=== PATIENT | female | born 1970 | race American Indian/Alaskan Native ===

== ENCOUNTER 2016-12-23 17:09 | Observation (INO) | payer OTHER ==
[2016-12-23 17:13] VITALS: BMI 29.8
[2016-12-23] MEDS ORDERED: Sodium Chloride 0.9% 1,000 ML IV STA (18:04)
[2016-12-23] MEDS ORDERED: Morphine 4 mg/ml ISec IVP STA (18:04)
--- NOTE | 2016-12-23 18:04 | ED PDOC ---
Arrival/HPI <Dewye Su - Last Filed: 12/23/16 21:44> - General Historian: Patient - History of Present Illness Time/Duration: 4-6 hours Quality: Aching Context: Home <Leah Alves - Last Filed: 12/24/16 20:20> - General Chief Complaint: Abdominal Pain Time Seen by Provider: 12/23/16 17:35 - History of Present Illness Narrative History of Present Illness (Text): 12/23/16 17:44 This 46 female with pmh diverticulitis, anemia, presents to this ED c/o LLQ abdominal pain, and mild nausea x 4 hours. Patient stated she had similar symptoms last year. Patient denies urinary symptoms, sob, cp, rash, vaginal discharge, fever, rash, trauma, rectal bleeding, or dizziness. (Leah Alves) Past Medical History - Provider Review Nursing Documentation Reviewed: Yes - Infectious Disease Hx of Infectious Diseases: None - Cardiac Hx Cardiac Disorders: Yes Hx Hypertension: Yes - Pulmonary Hx Respiratory Disorders: No - Neurological Hx Neurological Disorder: No - HEENT Hx HEENT Disorder: No - Renal Hx Renal Disorder: No - Endocrine/Metabolic Hx Hypothyroidism: Yes - Hematological/Oncological Hx Blood Disorders: Yes Hx Anemia: Yes - Integumentary Hx Dermatological Disorder: No - Musculoskeletal/Rheumatological Hx Musculoskeletal Disorders: No - Gastrointestinal Hx Gastrointestinal Disorders: No - Genitourinary/Gynecological Hx Genitourinary Disorders: No - Psychiatric Hx Psychophysiologic Disorder: No Hx Substance Use: Yes - Surgical History Other/Comment: left breast mass removal - Anesthesia Hx Anesthesia: Yes Hx Anesthesia Reactions: No Hx Malignant Hyperthermia: No <Leah Alves P - Last Filed: 12/24/16 20:20> Family/Social History - Physician Review Nursing Documentation Reviewed: Yes Family/Social History: No Known Family HX Smoking Status: Light Smoker < 10 Cigarettes Daily Hx Alcohol Use: Yes Frequency of alcohol use: Socially Hx Substance Use: Yes Substance used: marijuana <Leah Alves P - Last Filed: 12/24/16 20:20> Allergies/Home Meds <Dewey Su - Last Filed: 12/23/16 21:44> <Leah Alves P - Last Filed: 12/24/16 20:20> Allergies/Adverse Reactions: Allergies No Known Allergies Allergy (Verified 08/03/16 13:50) Review of Systems - Review of Systems Constitutional: Normal. absent: Fatigue, Weight Change, Fevers Eyes: Normal ENT: Normal. absent: Sore Throat Respiratory: Normal. absent: SOB, Cough, Sputum, Wheezing Cardiovascular: Normal. absent: Chest Pain, Palpitations Gastrointestinal: Abdominal Pain, Constipation, Nausea. absent: Diarrhea, Vomiting Genitourinary Female: Normal. absent: Dysuria, Frequency, Hematuria, Vaginal Bleeding, Vaginal Discharge Musculoskeletal: Normal. absent: Back Pain Skin: Normal. absent: Rash Neurological: Normal. absent: Headache, Dizziness, Focal Weakness, Gait Changes , Speech Changes, Facial Droop, Disequilibrium Endocrine: Normal Hemo/Lymphatic: Normal Psychiatric: Normal <Leah Alves P - Last Filed: 12/24/16 20:20> Physical Exam Temperature: Afebrile Blood Pressure: Normal Pulse: Regular Respiratory Rate: Normal Appearance: Positive for: Well-Appearing, Non-Toxic, Comfortable Pain Distress: None Mental Status: Positive for: Alert and Oriented X 3 - Systems Exam Head: Present: Atraumatic, Normocephalic Pupils: Present: PERRL Extroacular Muscles: Present: EOMI Conjunctiva: Present: Normal Mouth: Present: Moist Mucous Membranes Neck: Present: Normal Range of Motion. No: Meningeal Signs Respiratory/Chest: Present: Clear to Auscultation, Good Air Exchange. No: Respiratory Distress, Accessory Muscle Use, Wheezes, Rales, Retracting, Rhonchi Cardiovascular: Present: Regular Rate and Rhythm, Normal S1, S2. No: Murmurs Abdomen: Present: Tenderness (Mild LLQ tenderness), Normal Bowel Sounds. No: Distention, Peritoneal Signs, Rebound, Guarding, McBurney's Point Tender, Rovsing's Sign Present, Hernias Back: Present: Normal Inspection. No: CVA Tenderness, Midline Tenderness, Paraspinal Tenderness, Pain with Leg Raise Upper Extremity: Present: Normal Inspection. No: Cyanosis, Edema Lower Extremity: Present: Normal Inspection, NORMAL PULSES, Normal ROM, Neurovascularly Intact, Capillary Refill < 2 s. No: Edema, CALF TENDERNESS, Dariela's Sign Neurological: Present: GCS=15, CN II-XII Intact, Speech Normal, Motor Func Grossly Intact, Normal Sensory Function, Normal Cerebellar Funct, Gait Normal, Memory Normal Skin: Present: Warm, Dry, Normal Color. No: Rashes Psychiatric: Present: Alert, Oriented x 3 <Leah Alves P - Last Filed: 12/24/16 20:20> Vital Signs Temp Pulse Resp BP Pulse Ox 12/24/16 03:05 97.7 F 73 16 124/72 100 12/23/16 20:46 97.5 F L 66 16 118/80 100 12/23/16 20:29 98.1 F 98 H 16 101/58 L 96 12/23/16 17:47 99.2 F 84 20 121/89 100 Medical Decision Making <Dewey Su - Last Filed: 12/23/16 21:44> Re-evaluation Time: 00:18 Reassessment Condition: Re-examined, Improved - Lab Interpretations I have reviewed the lab results: Yes Interpretation: Abnormal lab values <Leah Alves P - Last Filed: 12/24/16 20:20> ED Course and Treatment: 12/24/16 00:18 Re-evaluation. Patient feels better. Discussed results and plan with patient who expresses understanding. All questions answered and there is agreement with the plan to discharge home with instructions. Patient stable for discharge. Return if symptoms persist or worsen. (Leah Alves P) - RAD Interpretation Narrative RAD Interpretations (Text): 12/23/16 21:36 Patient Name: YAMILE SAGE Addendum created by Kaleb Aguilera MD on 12/23/2016 9:27 PM Eastern Time ([place] & [place]) Bladder: Borderline bladder wall thickening, 4-5 mm. Incomplete distention, limiting evaluation. Lymph nodes: No pathologically enlarged lymph nodes. Few subcentimeter short axis lymph nodes about cecum and descending colon. IMPRESSION: 1. Findings compatible with acute diverticulitis cecum, descending colon. Recommend endoscopy following resolution. 2. Probable LEFT ovarian cyst. Consider ultrasound. 3. Mild cystitis vs underdistention. Correlate with urinalysis. 4. Probable fibroid uterus. 5. Incidental/non-acute findings are described above. Initial Report created on 12/23/2016 9:01 PM Eastern Time ([place] & [place]) EXAM: CT Abdomen and Pelvis With Intravenous Contrast. CLINICAL HISTORY: 46 years old, female; Pain; Abdominal pain; Localized; Left lower quadrant (llq) ; Additional info: Llq abdominal pain FINDINGS: Lower thorax: Minimal atelectasis. 0.4 cm nodule vs focal scarring RIGHT middle lobe. ABDOMEN: Liver: Unremarkable. No mass. Gallbladder and bile ducts: No calcified stones. No ductal dilation. Pancreas: No ductal dilation. No mass. Spleen: Too small to characterize lesion within spleen. No splenomegaly. Adrenals: No mass. Kidneys and ureters: No mass. No hydronephrosis. Stomach and bowel: 1.2 cm linear radiopaque density within proximal small bowel , likely ingested foreign body. Multiple scattered diverticula within colon. Mild mural thickening of short segment of distal sigmoid colon. Mild stranding within adjacent fat. Mild mural thickening of short segment of cecum. Mild stranding within adjacent fat. No obstruction. Appendix: Normal caliber. No inflammation. PELVIS: Bladder: Unremarkable. Reproductive: Mildly lobulated, heterogeneous uterus. 1.5 x 1.5 x 1.7 cm hypodense lesion within LEFT ovary. ABDOMEN and PELVIS: Intraperitoneal space: No significant fluid collection. No free air. Bones/joints: No acute fracture. Soft tissues: Tiny umbilical hernia containing fat. Vasculature: Unremarkable. No abdominal aortic aneurysm. Lymph nodes: No pathologically enlarged lymph nodes. IMPRESSION: 1. Findings compatible with acute diverticulitis cecum, descending colon. Recommend endoscopy following resolution. 2. Probable LEFT ovarian cyst. Consider ultrasound. 3. Probable fibroid uterus. 4. Incidental/non-acute findings are described above. Thank you for allowing us to participate in the care of your patient. Dictated and Authenticated by: Kaleb Aguilera MD 12/23/2016 9:01 PM Eastern Time ([place] & [place]) (Leah Alves) - Medication Orders Current Medication Orders: Discontinued Medications Sodium Chloride (Sodium Chloride 0.9%) 1,000 mls @ 1,000 mls/hr IV .Q1H STA Stop: 12/23/16 19:03 Last Admin: 12/23/16 18:34 Dose: 1,000 MLS/HR eMAR Start Stop Document 12/23/16 18:34 DENIA (Rec: 12/23/16 18:35 DENIA [facility] [id number]) Intravenous Solution Start Date 12/23/16 Start Time 18:35 End Date 12/23/16 End time 19:35 Total Infusion Time 60 Ciprofloxacin (Cipro 400mg/200ml Dsw) 200 mls @ 133.3 mls/hr IVPB STAT STA PRN Reason: Protocol Stop: 12/23/16 23:07 Last Admin: 12/24/16 00:34 Dose: 133.3 MLS/HR eMAR Start Stop Document 12/24/16 00:34 FJA (Rec: 12/24/16 00:34 [id number]) Intravenous Solution Start Date 12/24/16 Start Time 00:34 End Date 12/24/16 End time 02:45 Total Infusion Time 131 Metronidazole (Flagyl) 100 mls @ 100 mls/hr IVPB STAT STA PRN Reason: Protocol Stop: 12/23/16 22:36 Last Admin: 12/23/16 23:22 Dose: 100 MLS/HR eMAR Start Stop Document 12/23/16 23:22 JACKELYNA (Rec: 12/23/16 23:23 [id number]) Intravenous Solution Start Date 12/23/16 Start Time 23:22 End Date 12/24/16 End time 00:22 Total Infusion Time 60 Ceftriaxone Sodium (Rocephin 1 Gram Ivpb) 100 mls @ 200 mls/hr IVPB STAT STA PRN Reason: Protocol Stop: 12/23/16 22:13 Last Admin: 12/23/16 22:30 Dose: 200 MLS/HR eMAR Start Stop Document 12/23/16 22:30 JACKELYNA (Rec: 12/23/16 22:30 [id number]) Intravenous Solution Start Date 12/23/16 Start Time 22:30 End Date 12/23/16 End time 23:00 Total Infusion Time 30 Morphine Sulfate (Morphine) 4 mg IVP STAT STA Stop: 12/23/16 18:05 Last Admin: 12/23/16 18:35 Dose: 4 MG MAR Pain Assessment Document 12/23/16 18:35 [facility] (Rec: 12/23/16 18:35 [id number]) Pain Reassessment Is this a pain reassessment? No Sleep Is patient sleeping during reassessment? No Presence of Pain Presence of Pain Yes Pain Scale Used Pain Scale Used Numeric Location Pain Location Body Site Abdomen Description Description Constant Intensity of Pain at present 7 Acceptable Level of Pain 0 IVP Administration Document 12/23/16 18:35 [facility] (Rec: 12/23/16 18:35 [id number]) Charges for Administration # of IVP Administrations 1 Ondansetron HCl (Zofran Inj) 4 mg IVP STAT STA Stop: 12/23/16 18:05 Last Admin: 12/23/16 18:35 Dose: 4 MG IVP Administration Document 12/23/16 18:35 DENIA (Rec: 12/23/16 18:35 [id number]) Charges for Administration # of IVP Administrations 1 ED OBSERVATION <Dewey Su - Last Filed: 12/23/16 21:44> Discharge: Yes (f/u GI doctor tomorrow) Date of observation admission: 12/23/16 Time of observation admission: 18:00 <Marcy Alvesim P - Last Filed: 12/24/16 20:20> - Observation admission statement Patient is being placed in observation because:: Abdominal pain (Alves,Nahim P) - Goals of Observation Goals of observation are:: Labs, ct scan, UA, pain control, fluids, revaluation (Alves,Nahim P) - PA / PRODUCTION SANIT[employer]ER / Resident Statement / has reviewed & agrees with the documentation as recorded. / has examined the patient and agrees with the treatment plan. <Dewey Su - Last Filed: 12/23/16 21:44> Disposition/Present on Arrival <Dewey Su - Last Filed: 12/23/16 21:44> - Present on Arrival Any Indicators Present on Arrival: No History of DVT/PE: No History of Uncontrolled Diabetes: No Urinary Catheter: No History of Decub. Ulcer: No History Surgical Site Infection Following: None - Disposition Have Diagnosis and Disposition been Completed?: Yes Disposition Time: 00:19 Patient Plan: Discharge <Marcy Alvesim P - Last Filed: 12/24/16 20:20> - Disposition Diagnosis: Diverticulitis, Acute cystitis Disposition: HOME/ ROUTINE Condition: IMPROVED
[2016-12-23 18:30] LABS: ADD MANUAL DIFF? NO
[2016-12-23 18:34] LABS: BASO # 0.04 K/mm3 (0.0-2.0); BASO % 0.4 % (0.0-3.0); EOS # 0.3 (0.0-0.7); GRAN # 6.07 (1.4-6.5); GRAN % 55.3 % (50.0-68.0); HEMATOCRIT 36.9 % (36.0-48.0); LYMPH # 3.7 (1.2-3.4); LYMPH % 33.8 % (22.0-35.0); MEAN CORPUSCULAR HEMOGLOBIN 24.8 pg (25.0-35.0); MEAN CORPUSCULAR HGB CONC 32.2 g/dl (31.0-37.0); MEAN PLATELET VOLUME 9.2 fl (7.0-11.0); MONO # 0.8 (0.1-0.6); MONO % 7.5 % (1.0-6.0); PLATELET COUNT 414 10^3/uL (120.0-450.0); RED CELL DISTRIBUTION WIDTH 13.5 % (11.5-14.5)
[2016-12-23 19:00] LABS: ALB/GLOB RATIO 1.1 (1.1-1.8); ALKALINE PHOSPHATASE 82 U/L (38-133); ALT/SGPT 16 U/L (7-56); AST/SGOT 31 U/L (15-39); BILIRUBIN,TOTAL 0.4 mg/dL (0.2-1.3); BLOOD UREA NITROGEN 12 mg/dL (7-21); CALCIUM 8.8 mg/dL (8.4-10.5); CARBON DIOXIDE 26 mmol/L (21-33); CHLORIDE 105 mmol/L (98-107); GFR AFRICAN-AMERICAN > 60; GLUCOSE,RANDOM 93 mg/dL (70-110); LIPASE 68 U/L (23-300); POTASSIUM 4.3 mmol/L (3.6-5.0); SODIUM 139 mmol/L (132-148); TOTAL PROTEIN 7.1 g/dL (5.8-8.3)
[2016-12-23] MEDS ORDERED: Iohexol 350 MG/100 ML VIAL ONE (20:14)
[2016-12-23 20:28] LABS: URINE BILIRUBIN NEGATIVE (NEGATIVE); URINE BLOOD LARGE (NEGATIVE); URINE GLUCOSE (UA) NEGATIVE (NEGATIVE); URINE KETONE NEGATIVE (NEGATIVE); URINE LEUKOCYTE ESTERASE TRACE Leu/uL (NEGATIVE); URINE PROTEIN TRACE mg/dL (<30 mg/dL)
[2016-12-23 20:30] VITALS: RESP 16
[2016-12-23 20:31] LABS: URINE APPEARANCE CLEAR (CLEAR); URINE COLOR YELLOW (YELLOW)
[2016-12-23 20:38] LABS: URINE RBC TNTC /hpf (0-2)
[2016-12-23 20:39] LABS: URINE AMORPHOUS SEDIMENT FEW; URINE BACTERIA MANY (NEG)
[2016-12-23 20:47] VITALS: O2SAT 100
--- NOTE | 2016-12-23 21:02 | CT ---
EXAM: CT Abdomen and Pelvis With Intravenous Contrast. CLINICAL HISTORY: 46 years old, female; Pain; Abdominal pain; Localized; Left lower quadrant (llq); Additional info: Llq abdominal pain TECHNIQUE: Axial computed tomography images of the abdomen and pelvis with intravenous contrast. This CT exam was performed using one or more of the following dose reduction techniques: automated exposure control, adjustment of the mA and/or kV according to patient size, and/or use of iterative reconstruction technique. Coronal and sagittal reformatted images were created and reviewed. CONTRAST: 96 mL of OMNI 350 administered intravenously. COMPARISON: CT - ABD PELVIS W/O PO OR IV CONT 08/03/2016 2:59:28 PM FINDINGS: Lower thorax: Minimal atelectasis. 0.4 cm nodule vs focal scarring RIGHT middle lobe. ABDOMEN: Liver: Unremarkable. No mass. Gallbladder and bile ducts: No calcified stones. No ductal dilation. Pancreas: No ductal dilation. No mass. Spleen: Too small to characterize lesion within spleen. No splenomegaly. Adrenals: No mass. Kidneys and ureters: No mass. No hydronephrosis. Stomach and bowel: 1.2 cm linear radiopaque density within proximal small bowel, likely ingested foreign body. Multiple scattered diverticula within colon. Mild mural thickening of short segment of distal sigmoid colon. Mild stranding within adjacent fat. Mild mural thickening of short segment of cecum. Mild stranding within adjacent fat. No obstruction. Appendix: Normal caliber. No inflammation. PELVIS: Bladder: Unremarkable. Reproductive: Mildly lobulated, heterogeneous uterus. 1.5 x 1.5 x 1.7 cm hypodense lesion within LEFT ovary. ABDOMEN and PELVIS: Intraperitoneal space: No significant fluid collection. No free air. Bones/joints: No acute fracture. Soft tissues: Tiny umbilical hernia containing fat. Vasculature: Unremarkable. No abdominal aortic aneurysm. Lymph nodes: No pathologically enlarged lymph nodes. IMPRESSION: 1. Findings compatible with acute diverticulitis cecum, descending colon. Recommend endoscopy following resolution. 2. Probable LEFT ovarian cyst. Consider ultrasound. 3. Probable fibroid uterus. 4. Incidental/non-acute findings are described above.
[2016-12-23] MEDS ORDERED: metroNIDAZOLE IV 500 mg/100 ml 100 ML IVPB STA (21:37)
[2016-12-23] MEDS ORDERED: Ciprofloxacin 400mg/200ml D5W 200 ML IVPB STA (21:37)
[2016-12-23] MEDS ORDERED: cefTRIAXone 1 gm 100 ML IVPB STA (21:44)
[2016-12-24 03:15] VITALS: BP 124/72; PULSE 73; TEMP 97.7
== END 2016-12-24 00:25 | disposition home or self-care (01) ==
LOC: ED 17:09 → EROBSV 18:00
PROVIDERS: ADMIT Emergency Medicine; ATTEND Emergency Medicine
DX: N30.00 Acute cystitis without hematuria (principal); K57.32 Diverticulitis of large intestine without perforation or abscess without bleeding
CPT/HCPCS: 36415; 74177; 80053; 81001; 83690; 85025; 87086; 96361; 96365; 96366; 96367; 96375; 99284; G0378; J0696; J0744; J2270; J2405; J7040; Q9967

== ENCOUNTER 2018-02-26 10:48 | Inpatient (IN) | payer MEDICAID, OTHER ==
[2018-02-26 11:40] LABS: BASO # 0.06 K/mm3 (0.0-2.0); BASO % 0.5 % (0.0-3.0); EOS # 0.3 (0.0-0.7); EOS % 2.6 % (1.5-5.0); GRAN # 6.9 (1.4-6.5); GRAN % 59.4 % (50.0-68.0); HEMOGLOBIN 10.3 g/dL (12.0-16.0); LYMPH # 3.6 (1.2-3.4); LYMPH % 30.7 % (22.0-35.0); MEAN CELL VOLUME 67.5 fl (80.0-105.0); MEAN CORPUSCULAR HEMOGLOBIN 20.3 pg (25.0-35.0); MEAN CORPUSCULAR HGB CONC 30.1 g/dl (31.0-37.0); MEAN PLATELET VOLUME 9.3 fl (7.0-11.0); MONO # 0.8 (0.1-0.6); MONO % 6.8 % (1.0-6.0); RBC 5.07 10^6/uL (3.5-6.1); RED CELL DISTRIBUTION WIDTH 17.6 % (11.5-14.5); URINE BILIRUBIN NEGATIVE (NEGATIVE); URINE BLOOD NEGATIVE (NEGATIVE); URINE GLUCOSE (UA) NEGATIVE (NEGATIVE); URINE LEUKOCYTE ESTERASE NEGATIVE Leu/uL (NEGATIVE); URINE PROTEIN NEGATIVE mg/dL (<30 mg/dL); URINE UROBILINOGEN 0.2 E.U./dL (<1 E.U./dL); WHITE BLOOD COUNT 11.6 10^3/ul (4.5-11.0)
[2018-02-26 11:42] LABS: URINE APPEARANCE CLEAR (CLEAR); URINE COLOR YELLOW (YELLOW)
[2018-02-26 11:48] LABS: VENOUS BLOOD GAS BASE EXCESS -8.5 mmol/L (0.0-2.0); VENOUS BLOOD GAS PO2 105 mm/Hg (30-55); VENOUS BLOOD PH 7.14 (7.32-7.43)
[2018-02-26 11:50] LABS: INR 1.03 (0.93-1.08); PARTIAL THROMBOPLASTIN TIME 32.9 Seconds (25.1-36.5); PROTHROMBIN TIME 11.9 SECONDS (9.4-12.5)
[2018-02-26 11:51] LABS: ALB/GLOB RATIO 1.3 (1.1-1.8); ALBUMIN 4.2 g/dL (3.0-4.8); ALT/SGPT 29 U/L (7-56); AMYLASE 70 U/L (35-125); AST/SGOT 32 U/L (14-36); BLOOD UREA NITROGEN 10 mg/dL (7-21); CALCIUM 8.7 mg/dL (8.4-10.5); GFR AFRICAN-AMERICAN > 60; GFR NON-AFRICAN AMERICAN > 60; LIPASE 233 U/L (23-300)
--- NOTE | 2018-02-26 12:01 | ED PDOC ---
Arrival/HPI - General Chief Complaint: GI Problem Time Seen by Provider: 02/26/18 11:14 Historian: Patient - History of Present Illness Narrative History of Present Illness (Text): 02/26/18 11:51 47 year old female, with past medical history of internal hemorrhoids, diverticulitis (evidenced by colonoscopy performed at [facility] some years ago) and anemia and past social history of cigarette smoking, presents to the Emergency department complaining of bright red blood per rectum today. Patient informs noticing bright red blood over whole toilet as she was getting up from the toilet seat. Patient informs that the episode proceeded by transient right lower quadrant pain which was slightly relieved by the bowel movement but currently remains. Patient denies any systemic complaints, cardiopulmonary symptoms, fever, chills, nausea, vomiting, diarrhea or any other complaints. Patient reports her usual state of health for past 2 weeks. Time/Duration: 1-3 hours Symptom Onset: Sudden Symptom Course: Unchanged Quality: Aching Activities at Onset: Light Context: Home Past Medical History - Provider Review Nursing Documentation Reviewed: Yes - Infectious Disease Hx of Infectious Diseases: None - Cardiac Hx Cardiac Disorders: Yes Hx Hypertension: Yes - Pulmonary Hx Respiratory Disorders: No - Neurological Hx Neurological Disorder: No - HEENT Hx HEENT Disorder: No - Renal Hx Renal Disorder: No - Endocrine/Metabolic Hx Hypothyroidism: Yes - Hematological/Oncological Hx Blood Disorders: Yes Hx Anemia: Yes - Integumentary Hx Dermatological Disorder: No - Musculoskeletal/Rheumatological Hx Musculoskeletal Disorders: No - Gastrointestinal Hx Diverticulitis: Yes - Genitourinary/Gynecological Hx Genitourinary Disorders: No - Psychiatric Hx Psychophysiologic Disorder: No Hx Substance Use: Yes - Surgical History Other/Comment: left breast mass removal - Anesthesia Hx Anesthesia: Yes Hx Anesthesia Reactions: No Hx Malignant Hyperthermia: No Family/Social History - Physician Review Nursing Documentation Reviewed: Yes Family/Social History: No Known Family HX Smoking Status: Light Smoker < 10 Cigarettes Daily Hx Alcohol Use: Yes Hx Substance Use: Yes Substance used: marijuana Allergies/Home Meds Allergies/Adverse Reactions: Allergies No Known Allergies Allergy (Verified 02/26/18 11:07) Home Medications: Home Meds Medication Instructions Recorded Confirmed No Known Home Med 02/26/18 02/26/18 Review of Systems - Physician Review All systems were reviewed & negative as marked: Yes - Review of Systems Constitutional: Normal. absent: Fevers Eyes: Normal ENT: Normal Respiratory: Normal. absent: SOB Cardiovascular: Normal. absent: Chest Pain Gastrointestinal: Abdominal Pain, Hematochezia. absent: Diarrhea, Nausea, Vomiting Genitourinary Female: Normal Musculoskeletal: Normal Skin: Normal Neurological: Normal Endocrine: Normal Hemo/Lymphatic: Normal Psychiatric: Normal Physical Exam Vital Signs Reviewed: Yes Vital Signs Temp Pulse Resp BP Pulse Ox 02/26/18 17:30 78 18 158/70 H 99 02/26/18 15:30 76 18 140/90 100 02/26/18 13:30 70 18 150/99 H 100 02/26/18 11:15 97.6 F 88 18 148/106 H 100 Temperature: Afebrile Blood Pressure: Hypertensive Pulse: Regular Respiratory Rate: Normal Appearance: Positive for: Well-Appearing, Non-Toxic, Comfortable Pain Distress: None Mental Status: Positive for: Alert and Oriented X 3 - Systems Exam Head: Present: Atraumatic, Normocephalic Pupils: Present: PERRL Extroacular Muscles: Present: EOMI Conjunctiva: Present: Normal Respiratory/Chest: Present: Clear to Auscultation, Good Air Exchange. No: Respiratory Distress, Accessory Muscle Use Cardiovascular: Present: Regular Rate and Rhythm, Normal S1, S2. No: Murmurs Abdomen: Present: Tenderness (Very distractable right lower quadrant discomfort. ). No: Distention, Peritoneal Signs Rectal: Present: Gross Blood (Guiac positive for bright red blood in stool. ) Back: Present: Normal Inspection Upper Extremity: Present: Normal Inspection. No: Cyanosis, Edema Lower Extremity: Present: Normal Inspection. No: Edema Neurological: Present: GCS=15, CN II-XII Intact, Speech Normal Skin: Present: Warm, Dry, Normal Color. No: Rashes Psychiatric: Present: Alert, Oriented x 3, Normal Insight, Normal Concentration Medical Decision Making ED Course and Treatment: 02/26/18 11:14 Impression: 47 year old female presents to the Emergency department for bloody stool. Plan: -- Blood Type and Screen -- VBG -- CT of Abdomen/Pelvis -- Labs -- Chest X-ray -- Tylenol -- Urine Culture -- Urinalysis -- Reassess and disposition Progress Notes: 02/26/18 12:19 CXR reviewed by radiologist, shows: FINDINGS: LUNGS: No active pulmonary disease. PLEURA: No significant pleural effusion identified, no pneumothorax apparent. CARDIOVASCULAR: No radiographic findings to suggest acute or significant cardiovascular disease. OSSEOUS STRUCTURES: No significant abnormalities. VISUALIZED UPPER ABDOMEN: Normal. OTHER FINDINGS: None. IMPRESSION: No active disease. - Lab Interpretations Lab Results: 02/26/18 16:36 02/26/18 11:32 Lab Results 02/26/18 16:36: WBC 12.5 H, RBC 4.78, Hgb 9.7 L, Hct 32.1 L, MCV 67.2 L, MCH 20.3 L, MCHC 30.2 L, RDW 17.4 H, Plt Count 302, MPV 10.1, Gran % 53.6, Lymph % ( Auto) 36.5 H, [place] % (Auto) 6.7 H, Eos % (Auto) 2.6, Baso % (Auto) 0.6, Gran # 6.70 H, Lymph # (Auto) 4.6 H, [place] # (Auto) 0.8 H, Eos # (Auto) 0.3, Baso # ( Auto) 0.08 02/26/18 12:00: Blood Type Confirm B POSITIVE 02/26/18 11:32: Urine Color Yellow, Urine Appearance Clear, Urine pH 7.0, Ur Specific [place] 1.015, Urine Protein Negative, Urine Glucose (UA) Negative, Urine Ketones Negative, Urine Blood Negative, Urine Nitrate Negative, Urine Bilirubin Negative, Urine Urobilinogen 0.2, Ur Leukocyte Esterase Negative 02/26/18 11:32: Blood Type B POSITIVE, Antibody Screen Negative, BBK History Checked No verified bt 02/26/18 11:32: pO2 105 H, VBG pH 7.14 L*, VBG pCO2 63.0 H, VBG HCO3 21.4, VBG Total CO2 23.3, VBG O2 Sat (Calc) 97.5 H, VBG Base Excess -8.5 L, Sodium 126.0 L , Chloride 106.0, Glucose 101, Lactate 1.7, FiO2 21.0 02/26/18 11:32: Sodium 144, Chloride 108 H, Potassium 4.6, Carbon Dioxide 24, Anion Gap 16, BUN 10, Creatinine 0.7, Est GFR ( Amer) > 60, Est GFR (Non- Af Amer) > 60, Random Glucose 99, Calcium 8.7, Total Bilirubin 0.5, AST 32, ALT 29, Alkaline Phosphatase 89, Lactate Dehydrogenase 765 H, Total Creatine Kinase 145, Troponin I < 0.01, Total Protein 7.6, Albumin 4.2, Globulin 3.4, Albumin/ Globulin Ratio 1.3, Amylase 70, Lipase 233 02/26/18 11:32: PT 11.9, INR 1.03, APTT 32.9 02/26/18 11:32: WBC 11.6 H, RBC 5.07, Hgb 10.3 L, Hct 34.2 L, MCV 67.5 L, MCH 20.3 L, MCHC 30.1 L, RDW 17.6 H, Plt Count 513 H, MPV 9.3, Gran % 59.4, Lymph % (Auto) 30.7, [place] % (Auto) 6.8 H, Eos % (Auto) 2.6, Baso % (Auto) 0.5, Gran # 6.90 H, Lymph # (Auto) 3.6 H, [place] # (Auto) 0.8 H, Eos # (Auto) 0.3, Baso # ( Auto) 0.06 - RAD Interpretation Radiology Orders: 02/26/18 11:14 CHEST PORTABLE [RAD] Stat 02/26/18 11:43 ABDOMEN & PELVIS [ABD PELVIS PO & IV CONTRAST] [CT] Stat Shirring Tender: Radiologist - Medication Orders Current Medication Orders: Discontinued Medications Acetaminophen (Tylenol 325mg Tab) 650 mg PO STAT STA Stop: 02/26/18 11:53 Last Admin: 02/26/18 11:58 Dose: 650 mg MAR Pain/Vitals Document 02/26/18 11:58 [facility] (Rec: 02/26/18 11:58 [facility] [id number]) Pain Reassessment Is This A Pain ReAssessment? No Sleep Is patient sleeping during reassessment? No Presence of Pain Presence of Pain No Location Pain Location Body [employer] Professor Intensity 2 Ciprofloxacin (Cipro) 500 mg PO ONCE STA PRN Reason: Protocol Stop: 02/26/18 17:46 Last Admin: 02/26/18 18:03 Dose: 500 mg Metronidazole (Flagyl) 500 mg PO STAT STA PRN Reason: Protocol Stop: 02/26/18 17:47 Last Admin: 02/26/18 18:03 Dose: 500 mg - Scribe Statement The provider has reviewed the documentation as recorded by the Scribe Litzy Caputo. All medical record entries made by the Scribe were at my direction and personally dictated by me. I have reviewed the chart and agree that the record accurately reflects my personal performance of the history, physical exam, medical decision making, and the department course for this patient. I have also personally directed, reviewed, and agree with the discharge instructions and disposition. Disposition/Present on Arrival - Present on Arrival Any Indicators Present on Arrival: No History of DVT/PE: No History of Uncontrolled Diabetes: No Urinary Catheter: No History of Decub. Ulcer: No History Surgical Site Infection Following: None - Disposition Have Diagnosis and Disposition been Completed?: Yes Diagnosis: Diverticulitis large intestine, Diverticulosis Disposition: HOME/ ROUTINE Disposition Time: 18:18 Patient Plan: Discharge, Telemetry Condition: FAIR Referrals: Nano Flannery MD [Primary Care Provider] - Follow up with primary Forms: Outski (Danish)
[2018-02-26 12:02] LABS: TROPONIN I < 0.01 ng/mL
--- NOTE | 2018-02-26 12:40 | RAD ---
HISTORY: Subdiaphragmatic free air suspected COMPARISON: No prior. FINDINGS: LUNGS: No active pulmonary disease. PLEURA: No significant pleural effusion identified, no pneumothorax apparent. CARDIOVASCULAR: No radiographic findings to suggest acute or significant cardiovascular disease. OSSEOUS STRUCTURES: No significant abnormalities. VISUALIZED UPPER ABDOMEN: Normal. OTHER FINDINGS: None. IMPRESSION: No active disease.
[2018-02-26] MEDS ORDERED: Iohexol 240 (50 ml) ONE (12:54)
[2018-02-26] MEDS ORDERED: Iohexol 350 MG/100 ML VIAL ONE (12:55)
--- NOTE | 2018-02-26 15:26 | CARD ---
APPROVED REPORT EKG Measurement Heart [id number] <Conclusion> Normal sinus rhythm Possible Left atrial enlargement Nonspecific T wave abnormality Prolonged QT Abnormal ECG
[2018-02-26 16:50] LABS: BASO # 0.08 K/mm3 (0.0-2.0); BASO % 0.6 % (0.0-3.0); EOS # 0.3 (0.0-0.7); EOS % 2.6 % (1.5-5.0); GRAN # 6.7 (1.4-6.5); GRAN % 53.6 % (50.0-68.0); HEMOGLOBIN 9.7 g/dL (12.0-16.0); LYMPH # 4.6 (1.2-3.4); LYMPH % 36.5 % (22.0-35.0); MEAN CELL VOLUME 67.2 fl (80.0-105.0); MEAN CORPUSCULAR HEMOGLOBIN 20.3 pg (25.0-35.0); MEAN CORPUSCULAR HGB CONC 30.2 g/dl (31.0-37.0); MEAN PLATELET VOLUME 10.1 fl (7.0-11.0); MONO # 0.8 (0.1-0.6); MONO % 6.7 % (1.0-6.0); RBC 4.78 10^6/uL (3.5-6.1); RED CELL DISTRIBUTION WIDTH 17.4 % (11.5-14.5); WHITE BLOOD COUNT 12.5 10^3/ul (4.5-11.0)
--- NOTE | 2018-02-26 16:54 | CT ---
PROCEDURE: CT Abdomen and Pelvis with contrast HISTORY: Right red blood Per rectum. Relevant medical history: COMPARISON: 12/23/2016. CT abdomen and pelvis. TECHNIQUE: Contrast dose: 100 cc Omnipaque 350 Radiation dose: Total exam DLP = 550.52 mGy-cm. This CT exam was performed using one or more of the following dose reduction techniques: Automated exposure control, adjustment of the mA and/or kV according to patient size, and/or use of iterative reconstruction technique. FINDINGS: LOWER THORAX: Unremarkable. LIVER: Hepatic steatosis. No focal masses. No intrahepatic bile duct dilatation or perihepatic ascites. GALLBLADDER AND BILE DUCTS: Unremarkable. PANCREAS: Unremarkable. No gross lesion or ductal dilatation. SPLEEN: Unremarkable. ADRENALS: Unremarkable. No mass. KIDNEYS AND URETERS: Unremarkable. No hydronephrosis. No solid mass. VASCULATURE: Unremarkable. No aortic aneurysm. BOWEL: Severe diverticulosis throughout the entire colon. Short segmental inflammatory component in the sigmoid. APPENDIX: Normal appendix. PERITONEUM: Unremarkable. No free fluid. No free air. LYMPH NODES: Unremarkable. No enlarged lymph nodes. BLADDER: Unremarkable. REPRODUCTIVE: Enlarged, heterogeneous appearing uterus BONES: No acute fracture. OTHER FINDINGS: None. IMPRESSION: Severe mckeon diverticulosis. Short segment acute inflammatory component/acute diverticulitis sigmoid colon. Additional benign and/or incidental findings described above.
[2018-02-26] MEDS ORDERED: Morphine 4 mg/ml ISec IVP PRN (19:50)
[2018-02-26] MEDS ORDERED: Morphine 2 mg/ml ISec IVP PRN ×2 (19:50→20:02)
--- NOTE | 2018-02-26 20:05 | CP.PCM.HP ---
<Paxton Montgomery - Last Filed: 02/26/18 20:17> History of Present Illness - History of Present Illness History of Present Illness: 47 year old female, with past medical history of low thyroid hormone, diverticulitis last episode one year ago, and anemia who [place] [facility]ampy RLQ abdominal pain, bright red blood per rectum, with 2 episodes of watery diarrhea. All of her symptoms began at once, at 8:30 PM. she also reports nasuea but no vomiting. Patient denies any fever, chills, night sweats, cold intolerance, light headedness, and dizziness. She reports no recent travel , sick contacts, or eating anything out of the ordinary. 12 point review of system is otherwise negative. PMH: Diverticulitis, hypothyroidism, anemia Surgical History: Denies Allergies: Denies/NKA Social: 30 pack year history of smoking, denies alcohol, or illicit drug use PMD: Dr. Flannery Present on Admission - Present on Admission Any Indicators Present on Admission: No Review of Systems - Review of Systems All systems: reviewed and no additional remarkable complaints except (as per HPI ) Past Patient History - Infectious Disease Hx of Infectious Diseases: None - Past Social History Smoking Status: Light Smoker < 10 Cigarettes Daily - CARDIAC Hx Cardiac Disorders: Yes Hx Hypertension: Yes - PULMONARY Hx Respiratory Disorders: No - NEUROLOGICAL Hx Neurological Disorder: No - HEENT Hx HEENT Problems: No - RENAL Hx Chronic Kidney Disease: No - ENDOCRINE/METABOLIC Hx Hypothyroidism: Yes - HEMATOLOGICAL/ONCOLOGICAL Hx Blood Disorders: Yes Hx Anemia: Yes - INTEGUMENTARY Hx Dermatological Problems: No - MUSCULOSKELETAL/RHEUMATOLOGICAL Hx Musculoskeletal Disorders: No - GASTROINTESTINAL Hx Diverticulitis: Yes - GENITOURINARY/GYNECOLOGICAL Hx Genitourinary Disorders: No - PSYCHIATRIC Hx Psychophysiologic Disorder: No Hx Substance Use: Yes - SURGICAL HISTORY Other/Comment: left breast mass removal - ANESTHESIA Hx Anesthesia: Yes Hx Anesthesia Reactions: No Hx Malignant Hyperthermia: No Meds Allergies/Adverse Reactions: Allergies Allergy/AdvReac Type Severity Reaction Status Date / Time No Known Allergies Allergy Verified 02/26/18 11:07 Physical Exam - Constitutional Appears: Non-toxic - Head Exam Head Exam: ATRAUMATIC, NORMOCEPHALIC - Eye Exam Eye Exam: EOMI, Normal appearance - ENT Exam ENT Exam: Mucous Membranes Dry - Neck Exam Neck exam: Positive for: Normal Inspection - Respiratory Exam Respiratory Exam: Clear to Auscultation Bilateral, NORMAL BREATHING PATTERN. absent: Accessory Muscle Use - Cardiovascular Exam Cardiovascular Exam: RRR, +S1, +S2 - GI/Abdominal Exam GI & Abdominal Exam: Tenderness (lower abdomen). absent: Guarding, Rebound - Extremities Exam Extremities exam: Positive for: normal inspection. Negative for: calf tenderness - Back Exam Back exam: NORMAL INSPECTION. absent: CVA tenderness (L), CVA tenderness (R) - Neurological Exam Neurological exam: Alert, CN II-XII Intact, Oriented x3 - Psychiatric Exam Psychiatric exam: Normal Affect, Normal Mood - Skin Skin Exam: Dry, Intact, Normal Color, Warm Results - Vital Signs Recent Vital Signs: Last Vital Signs Temp 97.6 F 02/26/18 11:15 Pulse 78 02/26/18 19:47 Resp 188 H 02/26/18 19:47 BP 158/70 H 02/26/18 19:47 Pulse Ox 98 02/26/18 19:47 - Labs Result Diagrams: 02/26/18 16:36 02/26/18 11:32 Assessment & Plan - Assessment and Plan (Free Text) Assessment: 47 year old female with a past medical history of diverticulitis, hypothyroidism , and hypertension who presents with blood per rectum and RLQ pain and found to have acute diverticulitis, without abscess, of the sigmoid colon. Plan: 1) Diverticulitis - QTc of 493 - Chest X-ray no active disease - Ceftriaxone 2 grams q24h [facility]ER - Flagyl 500 mg q8h SHER - NPO diet - Morphine 1 mg q2h and 2 mg q4h PRN for moderate to severe pain - 1/2 NS with D5 at 100 ml/hr - GI consulted, Dr. Berman 2) Hypertension - Restart home Enalapril 5 mg if blood pressure does not get controlled 3) History of hypothyroidism - TSH 4) GI/DVT prophylaxis - Not indicated - Lovenox 40 mg SC Case discussed with Dr. Mane Carpenter - Date & Time Date: 02/26/18 Time: 20:35 <Mane Carpenter - Last Filed: 02/27/18 03:03> Results - Vital Signs Recent Vital Signs: Last Vital Signs Temp 97.6 F 02/26/18 11:15 Pulse 75 02/26/18 22:00 Resp 18 02/26/18 21:01 BP 158/70 H 02/26/18 21:01 Pulse Ox 98 02/26/18 19:47 - Labs Result Diagrams: 02/27/18 01:05 02/26/18 11:32 Labs: Laboratory Results - last 24 hr 02/27/18 01:05 Hgb 9.2 L Hct 30.7 L
[2018-02-26] MEDS: Dextrose 5%/0.45% NS 1,000 ML IV SCH (20:41)
[2018-02-26 21:05] VITALS: BMI 23.4
[2018-02-26] MEDS: metroNIDAZOLE IV 500 mg/100 ml 500 MG/100 ML BAG IVPB SCH (22:05)
[2018-02-27 01:21] LABS: HEMOGLOBIN 9.2 g/dL (12.0-16.0)
[2018-02-27] MEDS: metroNIDAZOLE IV 500 mg/100 ml 500 MG/100 ML BAG IVPB SCH ×3 (06:06→21:36)
[2018-02-27] MEDS: Dextrose 5%/0.45% NS 1,000 ML IV SCH (06:07)
[2018-02-27 06:38] LABS: BASO # 0.06 K/mm3 (0.0-2.0); BASO % 0.5 % (0.0-3.0); EOS # 0.3 (0.0-0.7); EOS % 2.7 % (1.5-5.0); GRAN # 4.93 (1.4-6.5); GRAN % 45.1 % (50.0-68.0); HEMOGLOBIN 9.4 g/dL (12.0-16.0); LYMPH # 4.9 (1.2-3.4); LYMPH % 44.7 % (22.0-35.0); MEAN CELL VOLUME 66.7 fl (80.0-105.0); MEAN CORPUSCULAR HEMOGLOBIN 19.8 pg (25.0-35.0); MEAN CORPUSCULAR HGB CONC 29.7 g/dl (31.0-37.0); MEAN PLATELET VOLUME 9.5 fl (7.0-11.0); MONO # 0.8 (0.1-0.6); RBC 4.74 10^6/uL (3.5-6.1); RED CELL DISTRIBUTION WIDTH 17.5 % (11.5-14.5); WHITE BLOOD COUNT 10.9 10^3/ul (4.5-11.0)
[2018-02-27 07:45] LABS: ALB/GLOB RATIO 1.2 (1.1-1.8); ALBUMIN 3.7 g/dL (3.0-4.8); ALT/SGPT 27 U/L (7-56); AST/SGOT 57 U/L (14-36); BLOOD UREA NITROGEN 8 mg/dL (7-21); CALCIUM 8.2 mg/dL (8.4-10.5); GFR AFRICAN-AMERICAN > 60; GFR NON-AFRICAN AMERICAN > 60
[2018-02-27] MEDS ORDERED: Ciprofloxacin 400mg/200ml D5W 400 MG/200 ML BAG IVPB SCH (10:00)
[2018-02-27] MEDS ORDERED: cefTRIAXone 2 GM IN NS 2 GM/100 ML BAG IVPB SCH (10:00)
--- NOTE | 2018-02-27 13:52 | CP.PCM.PN ---
<Gabriel Mccormack - Last Filed: 02/27/18 13:48> Subjective - Date & Time of Evaluation Date of Evaluation: 02/27/18 Time of Evaluation: 13:51 - Subjective Subjective: Patient seen and examined at bedside. Denies belly pain but admits to one episode of bloody diarrhea today. No nausea, vomiting, dizziness, weakness, chest pain or SOB. Objective - Vital Signs/Intake and Output Vital Signs (last 24 hours): Temp Pulse Resp BP Pulse Ox 97.6 F 77 18 144/86 100 02/26/18 11:15 02/27/18 07:59 02/27/18 07:59 02/27/18 07:59 02/27/18 07:59 Intake and Output: 02/27/18 02/27/18 06:59 18:59 Output Total 1 Balance -1 - Medications Medications: Current Medications Famotidine (Pepcid) 20 mg IVP DAILY [facility] Last Admin: 02/27/18 09:27 Dose: 20 mg Dextrose/Sodium Chloride (Dextrose 5%/0.45% Ns 1000 Ml) 1,000 mls @ 100 mls/hr IV .Q10H [facility] Last Admin: 02/27/18 06:07 Dose: 100 mls/hr Metronidazole (Flagyl) 500 mg in 100 mls @ 100 mls/hr IVPB Q8 [facility] PRN Reason: Protocol Last Admin: 02/27/18 06:06 Dose: 100 mls/hr Ceftriaxone Sodium (Rocephin 1 Gram Ivpb) 1 gm in 100 mls @ 100 mls/hr IVPB DAILY [facility] PRN Reason: Protocol Levothyroxine Sodium (Synthroid) 50 mcg PO 0600 [facility] Lisinopril (Zestril) 20 mg PO DAILY [facility] Last Admin: 02/27/18 09:27 Dose: 20 mg - Labs Labs: 02/27/18 06:00 02/27/18 06:00 PT 11.9 SECONDS (9.4-12.5) 02/26/18 11:32 INR 1.03 (0.93-1.08) 02/26/18 11:32 APTT 32.9 Seconds (25.1-36.5) 02/26/18 11:32 - Constitutional Appears: Well - Head Exam Head Exam: ATRAUMATIC, NORMAL INSPECTION, NORMOCEPHALIC - Eye Exam Eye Exam: EOMI, Normal appearance, PERRL Pupil Exam: NORMAL ACCOMODATION, PERRL - ENT Exam ENT Exam: Mucous Membranes Moist, Normal Exam - Neck Exam Neck Exam: Full ROM, Normal Inspection. absent: Lymphadenopathy - Respiratory Exam Respiratory Exam: Clear to Ausculation Bilateral, NORMAL BREATHING PATTERN - Cardiovascular Exam Cardiovascular Exam: REGULAR RHYTHM, +S1, +S2. absent: Murmur - GI/Abdominal Exam GI & Abdominal Exam: Soft, Normal Bowel Sounds. absent: Tenderness - Extremities Exam Extremities Exam: Full ROM, Normal Capillary Refill, Normal Inspection. absent : Joint Swelling, Pedal Edema - Back Exam Back Exam: NORMAL INSPECTION - Neurological Exam Neurological Exam: Alert, Awake, CN II-XII Intact, Normal Gait, Oriented x3 - Psychiatric Exam Psychiatric exam: Normal Affect, Normal Mood - Skin Skin Exam: Dry, Intact, Normal Color, Warm Assessment and Plan (1) Diverticulitis Assessment & Plan: GI (Antonella) D51/2 NS @ 100 Pepcid 20 IV QD Rocephin and Flagyl NPO Status: Acute (2) Hypothyroid Assessment & Plan: Synthroid 50 PO QD Status: Chronic (3) HTN (hypertension) Assessment & Plan: Zestril 20 PO QD Status: Chronic (4) Prophylactic measure Status: Acute <Mathew Carpenter - Last Filed: 02/28/18 11:26> Objective - Vital Signs/Intake and Output Vital Signs (last 24 hours): Temp Pulse Resp BP Pulse Ox 98.2 F 89 20 136/98 H 99 02/28/18 08:00 02/28/18 08:00 02/28/18 08:00 02/28/18 08:00 02/28/18 08:00 Intake and Output: 02/28/18 02/28/18 06:59 18:59 Intake Total 300 Balance 300 - Medications Medications: Current Medications Famotidine (Pepcid) 20 mg IVP DAILY [facility] Last Admin: 02/28/18 09:19 Dose: 20 mg Dextrose/Sodium Chloride (Dextrose 5%/0.45% Ns 1000 Ml) 1,000 mls @ 100 mls/hr IV .Q10H [facility] Last Admin: 02/27/18 06:07 Dose: 100 mls/hr Metronidazole (Flagyl) 500 mg in 100 mls @ 100 mls/hr IVPB Q8 [facility] PRN Reason: Protocol Last Admin: 02/28/18 05:42 Dose: 100 mls/hr Ceftriaxone Sodium (Rocephin 1 Gram Ivpb) 1 gm in 100 mls @ 100 mls/hr IVPB DAILY [facility] PRN Reason: Protocol Last Admin: 02/28/18 09:19 Dose: 100 mls/hr Levothyroxine Sodium (Synthroid) 50 mcg PO 0600 [facility] Last Admin: 02/28/18 05:42 Dose: 50 mcg Lisinopril (Zestril) 20 mg PO DAILY [facility] Last Admin: 02/28/18 09:19 Dose: 20 mg Morphine Sulfate (Morphine) 2 mg IVP Q4H PRN PRN Reason: Pain, moderate (4-7) Last Admin: 02/27/18 20:14 Dose: 2 mg - Labs Labs: 02/28/18 06:00 02/28/18 06:00 PT 11.9 SECONDS (9.4-12.5) 02/26/18 11:32 INR 1.03 (0.93-1.08) 02/26/18 11:32 APTT 32.9 Seconds (25.1-36.5) 02/26/18 11:32 Attending/Attestation - Attestation I have personally seen and examined this patient.: Yes I have fully participated in the care of the patient.: Yes I have reviewed all pertinent clinical information, including history, physical exam and plan: Yes Notes (Text): I have seen and examined the patient at bedside. Agree with the above note with the following additions/ exceptions: Briefly this is 47 year old female with history of hypothyroidism, diverticulitis and anemia who was admitted for evaluation of abdominal pain, BRBPR and diarrhea. CT revealed severe mckeon diverticulosis with acute sigmoid colon inflammation. Will start CLD. Continue IVF and IV antibiotics. Stool cultures pending. Awaiting GI consult. Patient is homeless and is currently living in a hotel. Will consult CM/SW. Patient does not want to go to the [facility]. She also has subclinical hypothyroidism. As TSH is>10, will start synthroid. She does not have any underlying cardiac issue. Patient will need repeat TFTs in 4 weeks. Upon discharge patient will follow up with Dr Nano Flannery.
--- NOTE | 2018-02-27 14:24 | CP.PCM.CON ---
<Elena Bonilla - Last Filed: 02/27/18 17:14> History of Present Illness - History of Present Illness History of Present Illness: PGY-2 GI consult note for Dr. Berman' service 47 year old female, with past medical history of low thyroid hormone, diverticulitis last episode one year ago, and anemia who presented to [facility] for crampy abdominal pain, bright red blood per rectum, with 2 episodes of watery diarrhea. She states that her symptoms began all at once, at 8:30 PM. She also reports mild nausea but no vomiting. Patient state that h had colonoscopy last year and was found to have multiple diverticulosis. She states that a few days ago she had abd cramping, diarrhea which resolved spontaneously. Patient denies any fever, chills, night sweats, cold intolerance, light headedness, and dizziness. She reports no recent travel, sick contacts, or eating anything out of the ordinary. PMH: Diverticulitis, hypothyroidism, anemia Surgical History: cyst from left breast Allergies: NKDA Social: 1/2 ppd, 30 pack year history of smoking, denies alcohol, or illicit drug use Review of Systems - Review of Systems All systems: reviewed and no additional remarkable complaints except Past Patient History - Infectious Disease Hx of Infectious Diseases: None - Past Social History Smoking Status: Light Smoker < 10 Cigarettes Daily - CARDIAC Hx Cardiac Disorders: Yes Hx Hypertension: Yes - PULMONARY Hx Respiratory Disorders: No - NEUROLOGICAL Hx Neurological Disorder: No - HEENT Hx HEENT Problems: No - RENAL Hx Chronic Kidney Disease: No - ENDOCRINE/METABOLIC Hx Hypothyroidism: Yes - HEMATOLOGICAL/ONCOLOGICAL Hx Blood Disorders: Yes Hx Anemia: Yes - INTEGUMENTARY Hx Dermatological Problems: No - MUSCULOSKELETAL/RHEUMATOLOGICAL Hx Falls: No - GASTROINTESTINAL Hx Diverticulitis: Yes - GENITOURINARY/GYNECOLOGICAL Hx Genitourinary Disorders: No - PSYCHIATRIC Hx Psychophysiologic Disorder: No - SURGICAL HISTORY Other/Comment: left breast mass removal - ANESTHESIA Hx Anesthesia: Yes Hx Anesthesia Reactions: No Hx Malignant Hyperthermia: No Meds Allergies/Adverse Reactions: Allergies Allergy/AdvReac Type Severity Reaction Status Date / Time No Known Allergies Allergy Verified 02/26/18 11:07 - Medications Medications: Current Medications Famotidine (Pepcid) 20 mg IVP DAILY [facility] Last Admin: 02/27/18 09:27 Dose: 20 mg Dextrose/Sodium Chloride (Dextrose 5%/0.45% Ns 1000 Ml) 1,000 mls @ 100 mls/hr IV .Q10H [facility] Last Admin: 02/27/18 06:07 Dose: 100 mls/hr Metronidazole (Flagyl) 500 mg in 100 mls @ 100 mls/hr IVPB Q8 [facility] PRN Reason: Protocol Last Admin: 02/27/18 14:18 Dose: 100 mls/hr Ceftriaxone Sodium (Rocephin 1 Gram Ivpb) 1 gm in 100 mls @ 100 mls/hr IVPB DAILY [facility] PRN Reason: Protocol Levothyroxine Sodium (Synthroid) 50 mcg PO 0600 [facility] Lisinopril (Zestril) 20 mg PO DAILY [facility] Last Admin: 02/27/18 09:27 Dose: 20 mg Physical Exam - Constitutional Appears: Well, No Acute Distress - Head Exam Head Exam: ATRAUMATIC, NORMOCEPHALIC - Eye Exam Eye Exam: EOMI, Normal appearance - Respiratory Exam Respiratory Exam: Clear to Auscultation Bilateral, NORMAL BREATHING PATTERN. absent: Rhonchi, Wheezes, Respiratory Distress - Cardiovascular Exam Cardiovascular Exam: REGULAR RHYTHM, +S1, +S2. absent: Bradycardia, Tachycardia , Systolic Murmur - GI/Abdominal Exam GI & Abdominal Exam: Normal Bowel Sounds, Tenderness (LLQ). absent: Diminished Bowel Sounds, Distended, Firm, Guarding - Extremities Exam Extremities exam: Positive for: normal inspection - Neurological Exam Neurological exam: Alert, CN II-XII Intact, Oriented x3 - Psychiatric Exam Psychiatric exam: Normal Affect, Normal Mood - Skin Skin Exam: Dry, Intact, Normal Color, Warm Results - Vital Signs Recent Vital Signs: Last Vital Signs Temp 97.6 F 02/26/18 11:15 Pulse 77 02/27/18 07:59 Resp 18 02/27/18 07:59 BP 144/86 02/27/18 07:59 Pulse Ox 100 02/27/18 07:59 - Labs Result Diagrams: 02/27/18 06:00 02/27/18 06:00 Labs: Laboratory Results - last 24 hr 02/27/18 02/27/18 02/27/18 01:05 06:00 06:00 WBC 10.9 RBC 4.74 Hgb 9.2 L 9.4 L Hct 30.7 L 31.6 L MCV 66.7 L MCH 19.8 L MCHC 29.7 L RDW 17.5 H Plt Count 481 H MPV 9.5 Gran % 45.1 L Lymph % (Auto) 44.7 H O'Brien % (Auto) 7.0 H Eos % (Auto) 2.7 Baso % (Auto) 0.5 Gran # 4.93 Lymph # (Auto) 4.9 H O'Brien # (Auto) 0.8 H Eos # (Auto) 0.3 Baso # (Auto) 0.06 Sodium 141 Potassium 3.6 Chloride 106 Carbon Dioxide 26 Anion Gap 13 BUN 8 Creatinine 0.8 Est GFR ( Amer) > 60 Est GFR (Non-Af Amer) > 60 Random Glucose 97 Calcium 8.2 L Total Bilirubin 0.4 AST 57 H D ALT 27 Alkaline Phosphatase 83 Total Protein 6.9 Albumin 3.7 Globulin 3.1 Albumin/Globulin Ratio 1.2 Thyroxine (T4) 02/27/18 06:00 WBC RBC Hgb Hct MCV MCH MCHC RDW Plt Count MPV Gran % Lymph % (Auto) O'Brien % (Auto) Eos % (Auto) Baso % (Auto) Gran # Lymph # (Auto) O'Brien # (Auto) Eos # (Auto) Baso # (Auto) Sodium Potassium Chloride Carbon Dioxide Anion Gap BUN Creatinine Est GFR ( Amer) Est GFR (Non-Af Amer) Random Glucose Calcium Total Bilirubin AST ALT Alkaline Phosphatase Total Protein Albumin Globulin Albumin/Globulin Ratio Thyroxine (T4) 6.0 Assessment & Plan - Assessment and Plan (Free Text) Assessment: 47 year old female, with past medical history of low thyroid hormone, diverticulitis last episode one year ago, and anemia who presented to [facility] for crampy abdominal pain, bright red blood per rectum most likely due to colitis. Plan: - CT abd/pelvis showed severe mckeon diverticulosis with acute inflammation of sigmiod colon - hep panel - continue IVF - Advance diet to CLD - continue antibiotics - stool cultures - continue to monitor h&H for overt bleeding case seen and discussed with Dr. Berman <Karolina Berman V - Last Filed: 02/28/18 00:19> Meds - Medications Medications: Current Medications Famotidine (Pepcid) 20 mg IVP DAILY [facility] Last Admin: 02/27/18 09:27 Dose: 20 mg Dextrose/Sodium Chloride (Dextrose 5%/0.45% Ns 1000 Ml) 1,000 mls @ 100 mls/hr IV .Q10H [facility] Last Admin: 02/27/18 06:07 Dose: 100 mls/hr Metronidazole (Flagyl) 500 mg in 100 mls @ 100 mls/hr IVPB Q8 [facility] PRN Reason: Protocol Last Admin: 02/27/18 21:36 Dose: 100 mls/hr Ceftriaxone Sodium (Rocephin 1 Gram Ivpb) 1 gm in 100 mls @ 100 mls/hr IVPB DAILY [facility] PRN Reason: Protocol Levothyroxine Sodium (Synthroid) 50 mcg PO 0600 [facility] Lisinopril (Zestril) 20 mg PO DAILY [facility] Last Admin: 02/27/18 09:27 Dose: 20 mg Morphine Sulfate (Morphine) 2 mg IVP Q4H PRN PRN Reason: Pain, moderate (4-7) Last Admin: 02/27/18 20:14 Dose: 2 mg Results - Vital Signs Recent Vital Signs: Last Vital Signs Temp 97.6 F 02/27/18 17:45 Pulse 79 02/27/18 17:45 Resp 20 02/27/18 17:45 BP 159/106 H 02/27/18 17:45 Pulse Ox 100 02/27/18 17:45 - Labs Result Diagrams: 02/27/18 06:00 02/27/18 06:00 Labs: Laboratory Results - last 24 hr 02/27/18 02/27/18 02/27/18 01:05 06:00 06:00 WBC 10.9 RBC 4.74 Hgb 9.2 L 9.4 L Hct 30.7 L 31.6 L MCV 66.7 L MCH 19.8 L MCHC 29.7 L RDW 17.5 H Plt Count 481 H MPV 9.5 Gran % 45.1 L Lymph % (Auto) 44.7 H O'Brien % (Auto) 7.0 H Eos % (Auto) 2.7 Baso % (Auto) 0.5 Gran # 4.93 Lymph # (Auto) 4.9 H O'Brien # (Auto) 0.8 H Eos # (Auto) 0.3 Baso # (Auto) 0.06 Sodium 141 Potassium 3.6 Chloride 106 Carbon Dioxide 26 Anion Gap 13 BUN 8 Creatinine 0.8 Est GFR ( Amer) > 60 Est GFR (Non-Af Amer) > 60 Random Glucose 97 Calcium 8.2 L Total Bilirubin 0.4 AST 57 H D ALT 27 Alkaline Phosphatase 83 Total Protein 6.9 Albumin 3.7 Globulin 3.1 Albumin/Globulin Ratio 1.2 Thyroxine (T4) 02/27/18 06:00 WBC RBC Hgb Hct MCV MCH MCHC RDW Plt Count MPV Gran % Lymph % (Auto) O'Brien % (Auto) Eos % (Auto) Baso % (Auto) Gran # Lymph # (Auto) O'Brien # (Auto) Eos # (Auto) Baso # (Auto) Sodium Potassium Chloride Carbon Dioxide Anion Gap BUN Creatinine Est GFR ( Amer) Est GFR (Non-Af Amer) Random Glucose Calcium Total Bilirubin AST ALT Alkaline Phosphatase Total Protein Albumin Globulin Albumin/Globulin Ratio Thyroxine (T4) 6.0 Attending/Attestation - Attestation I have personally seen and examined this patient.: Yes I have fully participated in the care of the patient.: Yes I have reviewed all pertinent clinical information: Yes Notes (Text): santi 02/28/18 00:18
[2018-02-27 17:46] VITALS: RESP 20
[2018-02-27] MEDS ORDERED: Morphine 4 mg/ml ISec IVP PRN (18:00)
[2018-02-28] MEDS: metroNIDAZOLE IV 500 mg/100 ml 500 MG/100 ML BAG IVPB SCH ×2 (05:42→13:33)
[2018-02-28] MEDS ORDERED: Levothyroxine 50 MCG TAB PO SCH (06:00)
[2018-02-28 06:51] LABS: BASO # 0.04 K/mm3 (0.0-2.0); BASO % 0.4 % (0.0-3.0); EOS # 0.3 (0.0-0.7); GRAN # 4.71 (1.4-6.5); GRAN % 44.4 % (50.0-68.0); HEMOGLOBIN 9.5 g/dL (12.0-16.0); LYMPH # 4.8 (1.2-3.4); LYMPH % 44.8 % (22.0-35.0); MEAN CELL VOLUME 66.9 fl (80.0-105.0); MEAN CORPUSCULAR HEMOGLOBIN 19.6 pg (25.0-35.0); MEAN CORPUSCULAR HGB CONC 29.3 g/dl (31.0-37.0); MEAN PLATELET VOLUME 9.4 fl (7.0-11.0); MONO # 0.8 (0.1-0.6); MONO % 7.4 % (1.0-6.0); RBC 4.84 10^6/uL (3.5-6.1); RED CELL DISTRIBUTION WIDTH 17.5 % (11.5-14.5); WHITE BLOOD COUNT 10.6 10^3/ul (4.5-11.0)
[2018-02-28 07:13] LABS: ALB/GLOB RATIO 1.2 (1.1-1.8); ALBUMIN 3.9 g/dL (3.0-4.8); ALT/SGPT 31 U/L (7-56); AST/SGOT 35 U/L (14-36); BLOOD UREA NITROGEN 6 mg/dL (7-21); CALCIUM 8.7 mg/dL (8.4-10.5); GFR AFRICAN-AMERICAN > 60; GFR NON-AFRICAN AMERICAN > 60
[2018-02-28 08:01] VITALS: BP 136/98; PULSE 89; TEMP 98.2; O2SAT 99
[2018-02-28] MEDS ORDERED: cefTRIAXone 1 gm 1 GM/100 ML BAG IVPB SCH (10:00)
[2018-02-28 12:37] LABS: HEPATITIS B SURFACE AG Negative (NEGATIVE)
[2018-02-28 12:43] LABS: HEPATITIS A IGM NEGATIVE (NEGATIVE); HEPATITIS B CORE AB NEGATIVE (NEGATIVE)
[2018-02-28 12:55] LABS: HEPATITIS C ANTIBODY NEGATIVE (NEGATIVE)
--- NOTE | 2018-02-28 13:17 | CP.PCM.PN ---
Subjective - Date & Time of Evaluation Date of Evaluation: 02/28/18 Time of Evaluation: 10:30 - Subjective Subjective: Seen and examined at the bedside earlier today, chart was reviewed. Patient tolerating liquid diet, she did have some abdominal discomfort but after bowel movement it's much improved. Stool was witnessed and it appeared dark brown. No bright red blood noted. Objective - Vital Signs/Intake and Output Vital Signs (last 24 hours): Temp Pulse Resp BP Pulse Ox 98.2 F 89 20 136/98 H 99 02/28/18 08:00 02/28/18 08:00 02/28/18 08:00 02/28/18 08:00 02/28/18 08:00 Intake and Output: 02/28/18 02/28/18 06:59 18:59 Intake Total 300 Balance 300 - Medications Medications: Current Medications Famotidine (Pepcid) 20 mg IVP DAILY [facility] Last Admin: 02/28/18 09:19 Dose: 20 mg Dextrose/Sodium Chloride (Dextrose 5%/0.45% Ns 1000 Ml) 1,000 mls @ 100 mls/hr IV .Q10H [facility] Last Admin: 02/27/18 06:07 Dose: 100 mls/hr Metronidazole (Flagyl) 500 mg in 100 mls @ 100 mls/hr IVPB Q8 [facility] PRN Reason: Protocol Last Admin: 02/28/18 05:42 Dose: 100 mls/hr Ceftriaxone Sodium (Rocephin 1 Gram Ivpb) 1 gm in 100 mls @ 100 mls/hr IVPB DAILY [facility] PRN Reason: Protocol Last Admin: 02/28/18 09:19 Dose: 100 mls/hr Levothyroxine Sodium (Synthroid) 50 mcg PO 0600 [facility] Last Admin: 02/28/18 05:42 Dose: 50 mcg Lisinopril (Zestril) 20 mg PO DAILY [facility] Last Admin: 02/28/18 09:19 Dose: 20 mg Morphine Sulfate (Morphine) 2 mg IVP Q4H PRN PRN Reason: Pain, moderate (4-7) Last Admin: 02/27/18 20:14 Dose: 2 mg - Labs Labs: 02/28/18 06:00 02/28/18 06:00 PT 11.9 SECONDS (9.4-12.5) 02/26/18 11:32 INR 1.03 (0.93-1.08) 02/26/18 11:32 APTT 32.9 Seconds (25.1-36.5) 02/26/18 11:32 - Constitutional Appears: No Acute Distress - Head Exam Head Exam: NORMOCEPHALIC - Eye Exam Eye Exam: Normal appearance. absent: Scleral icterus - ENT Exam ENT Exam: Mucous Membranes Moist - Respiratory Exam Respiratory Exam: NORMAL BREATHING PATTERN. absent: Respiratory Distress - Cardiovascular Exam Cardiovascular Exam: +S1, +S2 - GI/Abdominal Exam GI & Abdominal Exam: Soft, Normal Bowel Sounds. absent: Guarding, Tenderness, Organomegaly, Rebound - Extremities Exam Extremities Exam: absent: Calf Tenderness, Pedal Edema - Neurological Exam Neurological Exam: Alert, Awake, Oriented x3 - Skin Skin Exam: Dry, Warm Assessment and Plan - Assessment and Plan (Free Text) Assessment: ASSESSMENT: Abdominal pain, status post CT scan showing severe pandiverticulosis with acute inflammation of sigmoid Bright red blood per rectum. The secondary to colitis History of diverticulitis Anemia UTI (+) E coli PLAN: hep panel negative continue IVF continue CLD continue IV antibiotics FU stool cultures continue to monitor h&H for overt bleeding Seen and discussed with Dr. Berman
--- NOTE | 2018-02-28 13:41 | CP.PCM.DIS ---
Provider - Provider Date of Admission: 02/26/18 18:19 Attending physician: Mathew Carpenter MD Primary care physician: Nano Flannery MD Consults: Laura Social work Time Spent in preparation of Discharge (in minutes): 35 Hospital Course - Lab Results Lab Results: Most Recent Lab Values WBC 10.6 10^3/ul (4.5-11.0) 02/28/18 06:00 RBC 4.84 10^6/uL (3.5-6.1) 02/28/18 06:00 Hgb 9.5 g/dL (12.0-16.0) L 02/28/18 06:00 Hct 32.4 % (36.0-48.0) L 02/28/18 06:00 MCV 66.9 fl (80.0-105.0) L 02/28/18 06:00 MCH 19.6 pg (25.0-35.0) L 02/28/18 06:00 MCHC 29.3 g/dl (31.0-37.0) L 02/28/18 06:00 RDW 17.5 % (11.5-14.5) H 02/28/18 06:00 Plt Count 512 10^3/uL (120.0-450.0) H 02/28/18 06:00 MPV 9.4 fl (7.0-11.0) 02/28/18 06:00 Gran % 44.4 % (50.0-68.0) L 02/28/18 06:00 Lymph % (Auto) 44.8 % (22.0-35.0) H 02/28/18 06:00 [place] % (Auto) 7.4 % (1.0-6.0) H 02/28/18 06:00 Eos % (Auto) 3.0 % (1.5-5.0) 02/28/18 06:00 Baso % (Auto) 0.4 % (0.0-3.0) 02/28/18 06:00 Gran # 4.71 (1.4-6.5) 02/28/18 06:00 Lymph # (Auto) 4.8 (1.2-3.4) H 02/28/18 06:00 [place] # (Auto) 0.8 (0.1-0.6) H 02/28/18 06:00 Eos # (Auto) 0.3 (0.0-0.7) 02/28/18 06:00 Baso # (Auto) 0.04 K/mm3 (0.0-2.0) 02/28/18 06:00 PT 11.9 SECONDS (9.4-12.5) 02/26/18 11:32 INR 1.03 (0.93-1.08) 02/26/18 11:32 APTT 32.9 Seconds (25.1-36.5) 02/26/18 11:32 pO2 105 mm/Hg (30-55) H 02/26/18 11:32 VBG pH 7.14 (7.32-7.43) L* 02/26/18 11:32 VBG pCO2 63.0 (40-60) H 02/26/18 11:32 VBG HCO3 21.4 mmol/l (21-28) 02/26/18 11:32 VBG Total CO2 23.3 mmol.L (22-28) 02/26/18 11:32 VBG O2 Sat (Calc) 97.5 % (40-65) H 02/26/18 11:32 VBG Base Excess -8.5 mmol/L (0.0-2.0) L 02/26/18 11:32 Sodium 126.0 mmol/L (132-148) L 02/26/18 11:32 Chloride 106.0 mmol/L (98-107) 02/26/18 11:32 Glucose 101 mg/dl (65-105) 02/26/18 11:32 Lactate 1.7 mmol/L (0.7-2.1) 02/26/18 11:32 FiO2 21.0 % 02/26/18 11:32 Sodium 142 mmol/L (132-148) 02/28/18 06:00 Potassium 3.7 mmol/L (3.6-5.0) 02/28/18 06:00 Chloride 107 mmol/L (98-107) 02/28/18 06:00 Carbon Dioxide 24 mmol/L (21-33) 02/28/18 06:00 Anion Gap 15 (10-20) 02/28/18 06:00 BUN 6 mg/dL (7-21) L 02/28/18 06:00 Creatinine 0.8 mg/dl (0.7-1.2) 02/28/18 06:00 Est GFR ( Amer) > 60 02/28/18 06:00 Est GFR (Non-Af Amer) > 60 02/28/18 06:00 Random Glucose 98 mg/dL (70-110) 02/28/18 06:00 Calcium 8.7 mg/dL (8.4-10.5) 02/28/18 06:00 Total Bilirubin 0.4 mg/dL (0.2-1.3) 02/28/18 06:00 AST 35 U/L (14-36) 02/28/18 06:00 ALT 31 U/L (7-56) 02/28/18 06:00 Alkaline Phosphatase 80 U/L (38-126) 02/28/18 06:00 Lactate Dehydrogenase 765 U/L (333-699) H 02/26/18 11:32 Total Creatine Kinase 145 U/L (35-230) 02/26/18 11:32 Troponin I < 0.01 ng/mL 02/26/18 11:32 Total Protein 7.1 g/dL (5.8-8.3) 02/28/18 06:00 Albumin 3.9 g/dL (3.0-4.8) 02/28/18 06:00 Globulin 3.2 gm/dL 02/28/18 06:00 Albumin/Globulin Ratio 1.2 (1.1-1.8) 02/28/18 06:00 Amylase 70 U/L (35-125) 02/26/18 11:32 Lipase 233 U/L (23-300) 02/26/18 11:32 Thyroxine (T4) 6.0 ug/dL (5.5-11.0) 02/27/18 06:00 TSH 3rd Generation 17.10 mIU/mL (0.46-4.68) H 02/26/18 11:00 Urine Color Yellow (YELLOW) 02/26/18 11:32 Urine Appearance Clear (CLEAR) 02/26/18 11:32 Urine pH 7.0 (4.7-8.0) 02/26/18 11:32 Ur Specific [place] 1.015 (1.005-1.035) 02/26/18 11:32 Urine Protein Negative mg/dL (<30 mg/dL) 02/26/18 11:32 Urine Glucose (UA) Negative mg/dL (NEGATIVE) 02/26/18 11:32 Urine Ketones Negative mg/dL (NEGATIVE) 02/26/18 11:32 Urine Blood Negative (NEGATIVE) 02/26/18 11:32 Urine Nitrate Negative (NEGATIVE) 02/26/18 11:32 Urine Bilirubin Negative (NEGATIVE) 02/26/18 11:32 Urine Urobilinogen 0.2 E.U./dL (<1 E.U./dL) 02/26/18 11:32 Ur Leukocyte Esterase Negative Juli/uL (NEGATIVE) 02/26/18 11:32 Hepatitis A IgM Ab Negative (NEGATIVE) 02/28/18 06:00 Hep Bs Antigen Negative (NEGATIVE) 02/28/18 06:00 Hep B Core IgM Ab Negative (NEGATIVE) 02/28/18 06:00 Hepatitis C Antibody Negative (NEGATIVE) 02/28/18 06:00 Blood Type B POSITIVE 02/26/18 11:32 Blood Type Confirm B POSITIVE 02/26/18 12:00 Antibody Screen Negative 02/26/18 11:32 BBK History Checked No verified bt 02/26/18 11:32 - Hospital Course Hospital Course: 47 year old female, with past medical history of low thyroid hormone, diverticulitis last episode one year ago, and anemia who mpresented to [facility] [place] for crampy RLQ abdominal pain, bright red blood per rectum, with 2 episodes of watery diarrhea. All of her symptoms began at once, at 8:30 PM. she also reports nasuea but no vomiting. Patient denies any fever, chills, night sweats, cold intolerance, light headedness, and dizziness. She reports no recent travel , sick contacts, or eating anything out of the ordinary. 12 point review of system is otherwise negative. Pt admitted & started on Abx. Had one episode of bloody diarrhea on hospital day 1. Seen/evaluated by GI with recs for abx, hep panel- which was negative. See/evaluated by SW/CM- pt eligible for janeen care. Pt without blood per rectum on hospital day 3, stable and ready for discharge home on PO antibiotics with instructions to follow up with PMD after discharge. Diagnoses: Diverticulosis HTN Hypothyroidism Anemia - Date & Time of H&P Date of H&P: 02/26/18 Time of H&P: 20:05 Discharge Exam - Head Exam Head Exam: ATRAUMATIC, NORMAL INSPECTION, NORMOCEPHALIC - Eye Exam Eye Exam: EOMI, Normal appearance - ENT Exam ENT Exam: Mucous Membranes Moist, Normal Exam - Neck Exam Neck exam: Full Rom, Normal Inspection - Respiratory Exam Respiratory Exam: Clear to PA & Lateral, NORMAL BREATHING PATTERN, UNREMARKABLE - Cardiovascular Exam Cardiovascular Exam: REGULAR RHYTHM, +S1, +S2 - GI/Abdominal Exam GI & Abdominal Exam: Normal Bowel Sounds, Soft, Tenderness (mild, LLQ), Unremarkable. absent: Distended, Firm, Guarding - Extremities Exam Extremities exam: normal inspection - Neurological Exam Neurological exam: Alert, CN II-XII Intact, Oriented x3 - Psychiatric Exam Psychiatric exam: Normal Affect, Normal Mood - Skin Skin Exam: Dry, Intact, Normal Color, Warm Discharge Plan - Discharge Medications Prescriptions: Levothyroxine [Synthroid] 50 mcg PO 0600 #30 tab Lisinopril [Zestril] 20 mg PO DAILY #30 tab Sulfamethoxazole/Trimethoprim [Bactrim DS 800 mg-160 mg] 1 tab PO BID #14 tab - Follow Up Plan Condition: STABLE Disposition: HOME/ ROUTINE Instructions: High Blood Pressure (DC), Diverticulosis (DC), Bloody Stools, Adult (DC) Additional Instructions: Please take all medications as prescribed. Please follow up with your primary care provider 1-2 weeks after discharge for further evaluation. If you have a recurrence of symptoms, please return to hospital. Referrals: Nano Flannery MD [Primary Care Provider] -
== END 2018-02-28 15:45 | disposition home or self-care (01) | DRG 392 ==
LOC: ED 10:48 → ERH 18:19 → 3RNO 19:41
PROVIDERS: ADMIT Internal Medicine; ATTEND Hospitalist
DX: K57.92 Diverticulitis of intestine, part unspecified, without perforation or abscess without bleeding (principal); N39.0 Urinary tract infection, site not specified; D64.9 Anemia, unspecified; E03.9 Hypothyroidism, unspecified; I10 Essential (primary) hypertension; K52.9 Noninfective gastroenteritis and colitis, unspecified; B96.20 Unspecified Escherichia coli [E. coli] as the cause of diseases classified elsewhere; F17.210 Nicotine dependence, cigarettes, uncomplicated; Z59.0 Homelessness